=== PATIENT | female | born 1985 | race Caucasian/White ===

== ENCOUNTER 2018-05-05 17:20 | Inpatient (IN) ==
[2018-05-08 11:45] VITALS: BP 106/63
== END 2018-05-08 17:15 | disposition home or self-care (01) | DRG 917 ==
LOC: N.ED 17:20 → SUATTDRO 19:17 → N.EDINP 19:17 → N.CC 19:45
PROVIDERS: ADMIT Family Medicine; ATTEND Internal Medicine Geriatric Medicine